=== PATIENT | female | born 1960 | race Caucasian/White ===

== ENCOUNTER 2017-06-24 14:07 | Day surgery (SDC) | payer OTHER ==
[~2017-06-24 14:07] MED LIST: Cipro500 MG PO; ERGO400 PO; Hydrocodone-Ap1 EA23 PO; LEVFLO500 PO; PREG75 PO; PROCODE120 PO; Percocet 5-3251 EACH PO; TRAM50 PO; VENL37.5 PO
== END 2017-06-24 22:55 | disposition home or self-care (01) ==
LOC: RAD 14:07
PROC: BP39YZZ Magnetic Resonance Imaging (MRI) of Left Shoulder using Other Contrast (ICD-10-PCS; principal; 2017-06-24)
DX: M75.122 Complete rotator cuff tear or rupture of left shoulder, not specified as traumatic (principal)
CPT/HCPCS: 23350; 73201; 77002; Q9967

== ENCOUNTER 2017-07-01 11:42 | Day surgery (SDC) | payer OTHER ==
[~2017-07-01] VITALS: Ht 157.5 cm; Wt 98.0 kg
[2017-07-01] MEDS ORDERED: MS CONTIN (13:48)
[2017-07-01] MEDS ORDERED: CALCA400CH PO (13:49)
== END 2017-07-01 17:55 | disposition home or self-care (01) ==
LOC: ORSCSDS 11:42
DX: M75.122 Complete rotator cuff tear or rupture of left shoulder, not specified as traumatic (principal); M75.42 Impingement syndrome of left shoulder; I10 Essential (primary) hypertension; G47.33 Obstructive sleep apnea (adult) (pediatric); E66.01 Morbid (severe) obesity due to excess calories; Z68.41 Body mass index [BMI] 40.0-44.9, adult; Z79.899 Other long term (current) drug therapy
CPT/HCPCS: C1713; J0690; J1100; J1885; J2250; J2405; J3010; J7120

== ENCOUNTER 2018-12-09 08:48 | Day surgery (SDC) | payer OTHER ==
[~2018-12-09 08:48] MED LIST changes: +CALCA400CH PO; +MS CONTIN
--- NOTE | 2018-12-09 10:18 | NUR ---
REPORT RECEIVED FROM NALLELY FOR CERVICAL MYLEOGRAM PATIENT. STATES PATIENT NOT CURRENTLY REPORTING HEADACHE, BUT THAT SHE MAY LIKELY EXPERIENCE IT. PATIENT STATES SHE HAS HAD A NUMBNESS AND SOME DISCOMFORT IN HER UPPER BACK OF HER BILATERAL LEGS THAT IS TRANSIENT IN NATURE FOR HER AT BASELINE. SHE STATES SHE HASN'T HAD IT IN A WHILE AND IT MAY BE DUE TO THE WAY THAT SHE WAS LYING. PATIENT REPOSITIONED WITH ADEQUATE RELIEF. PATIENT WITH GOOD AND EQUAL STRENGTH BILATERALLY IN LOWER LEGS. DENIES HEADACHE AT THIS TIME, WILL MONITOR. PATIENT REQUESTS ICE CHIPS. HOB AT 30 DEGREES AT ADMIT TO STEP. BANDAID TO BACK OBSERVED TO BE CLEAN, DRY AND INTACT. PATIENT NOTIFIED HER RECOVERY WILL BE UNTIL APPROXIMATELY 1200. VISITOR AT BEDSIDE NOW.
--- NOTE | 2018-12-09 11:58 | NUR ---
PATIENT UP FOR WALK, NO WEAKNESS NOTED, SOME STIFFNESS IN L LEG THAT PATIENT STATES IS LIKELY FROM LYING IN THE SAME POSITION FOR TOO LONG. D/C INSTRUCTIONS GIVEN WITH STATED UNDERSTANDING, PATIENT PLANNING ON GOING TO GET A COFFEE WITH HER VISTOR AT BEDSIDE AFTER LEAVING THE DEPARTMENT. DISCHARGED HOME AMBULATORY WITHOUT DISTRESS OR DIFFICULTIES.
[2019-04-03] MEDS ORDERED: PANT40 (10:51)
[2019-04-03] MEDS ORDERED: Estrace Vagin42.5 GM (10:52)
[2019-04-03] MEDS ORDERED: VOLTAREN100 GM (10:52)
== END 2018-12-09 23:01 | disposition home or self-care (01) ==
LOC: RAD 08:48
DX: M50.11 Cervical disc disorder with radiculopathy, high cervical region (principal); M47.23 Other spondylosis with radiculopathy, cervicothoracic region; M48.02 Spinal stenosis, cervical region; M46.92 Unspecified inflammatory spondylopathy, cervical region
CPT/HCPCS: 62302; 72126; Q9967

== ENCOUNTER 2018-12-22 09:54 | Day surgery (SDC) | payer OTHER ==
[~2018-12-22] VITALS: Ht 157.5 cm; Wt 98.2 kg
--- NOTE | 2018-12-22 11:42 | NUR ---
12/22/18 1142 Marianne Guzman PT. VERBALIZES LIKE SOMETHING IS STUCK IN HER ESOPHAGUS. PT. ATE AT 2300 LAST NIGHT & THIS IS WHY SHE IS HERE. IS AWARE.
--- NOTE | 2018-12-22 12:44 | NUR ---
12/22/18 1244 Marianne Guzman PT. VERBALIZES HAVING A BUMP ON HER LIP POST PROCEDURE. NO BLEEDING OBSERVED. INSTRUCTED PT. THAT SOMETIMES THE BITE BLOCK CAN MOVE IN THE MOUTH & CAUSE THIS.
[2019-04-03] MEDS ORDERED: PANT40 (10:51)
[2019-04-03] MEDS ORDERED: Estrace Vagin42.5 GM (10:52)
[2019-04-03] MEDS ORDERED: VOLTAREN100 GM (10:52)
== END 2018-12-22 12:40 | disposition home or self-care (01) ==
LOC: ORSCSDS 09:54
DX: R13.10 Dysphagia, unspecified (principal); K20.0 Eosinophilic esophagitis; K44.9 Diaphragmatic hernia without obstruction or gangrene; R11.2 Nausea with vomiting, unspecified; K21.9 Gastro-esophageal reflux disease without esophagitis; I10 Essential (primary) hypertension; G47.33 Obstructive sleep apnea (adult) (pediatric); M79.7 Fibromyalgia; Z79.899 Other long term (current) drug therapy
CPT/HCPCS: 88305; 88342; J2704; J7120

== ENCOUNTER → 2019-12-04 | Outpatient (CLI) | payer OTHER ==
[~2019-12-04] MED LIST changes: +Estrace Vagin42.5 GM; +PANT40; +VOLTAREN100 GM
[2019-12-04 12:41] LABS: Source, Urine Clean Catch
[2019-12-04 15:35] LABS: Bilirubin, Urine Neg (Neg); Blood, Urine 1+ (Neg); Glucose Qualitative, Urine Neg (Neg); Ketones, Urine Neg (Neg); Leukocyte Esterase, Urine Neg (Neg); Nitrite, Urine Neg (Neg); Protein, Urine Neg (Neg); Specific Gravity, Urine 1.025 (1.003-1.022); Urobilinogen, Urine NORM (Normal)
[2019-12-04 15:47] LABS: Appearance, Urine Cloudy (Clear); Color, Urine Yellow (P-Yellow)
[2019-12-04 16:08] LABS: Amorphous Heavy (0-Heavy); Bacteria Not Seen /hpf; Red Blood Cells, Urine Not Seen /hpf (0-2); Squamous Epithelial Cells Not Seen /hpf (Few); White Blood Cells, Urine Not Seen /hpf (0-5)
[2019-12-07 15:11] LABS: HPV 16 Negative (Negative); HPV 18 Negative (Negative); HPV OTHER HR TYPES Negative (Negative)
== END | disposition home or self-care (01) ==
LOC: LAB 12:40 → LAB SHORT 12:40
PROVIDERS: Obstetrics & Gynecology
DX: Z01.419 Encounter for gynecological examination (general) (routine) without abnormal findings (principal); R30.9 Painful micturition, unspecified
CPT/HCPCS: 81001

== ENCOUNTER 2020-04-19 13:56 | Observation (INO) | payer OTHER ==
[~2020-04-19] VITALS: Ht 157.5 cm; Wt 97.9 kg
[~2020-04-19 13:56] MED LIST changes: -ERGO400 PO; -Hydrocodone-Ap1 EA23 PO; -PREG75 PO
[2020-04-19 14:42] LABS: BASOPHILS ABSOLUTE AUTO 0.05 K/mm3 (0.00-0.23); BASOPHILS PERCENT AUTO 1 % (0-2); EOSINOPHILS ABSOLUTE AUTO 0.21 K/mm3 (0.00-0.68); EOSINOPHILS PERCENT AUTO 3 % (0-6); Hematocrit 42.2 % (33.0-51.0); Hemoglobin 13.5 g/dL (11.5-16.0); IMMATURE GRAN ABSOLUTE AUTO 0.03 K/mm3 (0.00-0.10); IMMATURE GRAN PERCENT AUTO 0 % (0-1); LYMPHOCYTES ABSOLUTE AUTO 2.15 K/mm3 (0.84-5.20); LYMPHOCYTES PERCENT AUTO 29 % (21-46); MONOCYTES ABSOLUTE AUTO 0.53 K/mm3 (0.16-1.47); MONOCYTES PERCENT AUTO 7 % (4-13); Mean Corpuscular HGB 28.3 pg (26.0-34.0); Mean Corpuscular Volume 89 fL (80-100); Mean Platelet Volume 9.3 fL (9.1-12.4); NEUTROPHILS ABSOLUTE AUTO 4.54 K/mm3 (1.96-9.15); NEUTROPHILS PERCENT AUTO 60 % (41-73); Platelet Count 199 K/mm3 (150-400); RDW Coefficient Variation 13.5 % (11.7-14.2); RDW Standard Deviation 43.9 fL (35.1-46.3); Red Blood Cell Count 4.77 M/mm3 (3.80-5.20); White Blood Cell Count 7.51 K/mm3 (4.00-11.30)
[2020-04-19 14:55] LABS: Alanine Aminotransfer (ALT/SGP 35 U/L (12-78); Albumin, Blood 4.1 g/dL (3.4-5.0); Albumin/Globulin Ratio 1.1 (0.8-1.8); Alk Phos 69 U/L (50-136); Anion Gap 8 mmol/L (6-16); Aspartate Aminotrans (AST/SGOT 16 U/L (12-37); Bilirubin, Total 0.3 mg/dL (0.1-1.0); Blood Urea Nitrogen 10 mg/dL (8-24); Bun/Creatinine Ratio 15.2 (12.0-20.0); CO2, Blood 29 mmol/L (21-32); Calcium, Blood 9.1 mg/dL (8.5-10.1); Chloride, Blood 104 mmol/L (98-108); Creatinine, Blood 0.66 mg/dL (0.40-1.00); Globulin, Blood 3.6 g/dL (2.2-4.0); Glomerular Filtration Rate >60 (60-); Glucose, Blood 112 mg/dL (70-99); Potassium, Blood 3.3 mmol/L (3.5-5.5); Sodium, Blood 141 mmol/L (136-145); Total Protein, Blood 7.7 g/dL (6.4-8.2)
[2020-04-19] MEDS ORDERED: Vitamin D2000 UNIT PO (15:13)
[2020-04-19] MEDS ORDERED: CYAN500 PO (15:14)
[2020-04-19] MEDS ORDERED: Hydrocodone-Ap1 EA23 PO (15:14)
[2020-04-19] MEDS ORDERED: PREG75 PO (15:14)
[2020-04-19] MEDS ORDERED: RISP.25 PO (15:18)
--- NOTE | 2020-04-19 19:20 | NUR ---
SHIFT SUMMARY LEE ARRIVED FROM ER AROUND 171. INDEP FROM STRETCHER TO BED. WATER PROVIDED PER ORDER, BLOOD SUGAR 80. KEPT NPO. AT BEDSIDE.
--- NOTE | 2020-04-20 05:08 | NUR ---
SHIFT SUMMARY ASSUMED CARE OF PT AT 1900. PT IS A/OX4. HEART SOUNDS REGULAR, LUNG SOUNDS CLEAR. PT INDEPENDENT TO BATHROOM. PT GLUCOSE STAYED ABOVE 70 T/O THE NIGHT. NO ACUTE EVENTS DURING THE NIGHT. PT SLEPT T/O THE NIGHT. CALL LIGHT IN REACH, BED IN LOWEST POSTION.
[2020-04-20 05:35] LABS: Anion Gap 5 mmol/L (6-16); Blood Urea Nitrogen 11 mg/dL (8-24); Bun/Creatinine Ratio 17.4 (12.0-20.0); CO2, Blood 31 mmol/L (21-32); Calcium, Blood 8.8 mg/dL (8.5-10.1); Chloride, Blood 108 mmol/L (98-108); Creatinine, Blood 0.63 mg/dL (0.40-1.00); Glomerular Filtration Rate >60 (60-); Glucose, Blood 89 mg/dL (70-99); Potassium, Blood 3.5 mmol/L (3.5-5.5); Sodium, Blood 144 mmol/L (136-145)
[2020-04-20] MEDS ORDERED: METF500 PO (16:21)
--- NOTE | 2020-04-20 17:00 | NUR ---
DISCHARGE INSTRUCTIONS COMPLETED AND DISCUSSED WITH PT EXPRESSING UNDERSTANDING. SCRIPT FAXED TO [facility]. TO [facility] VIA W/C.
== END 2020-04-20 17:00 | disposition home or self-care (01) ==
LOC: ER 13:56 → MEDS 13:57
PROVIDERS: Emergency Medicine; ADMIT Internal Medicine Endocrinology, Diabetes & Metabolism
DX: E16.1 Other hypoglycemia (principal); R73.03 Prediabetes; E87.6 Hypokalemia; G89.4 Chronic pain syndrome; M47.892 Other spondylosis, cervical region; M47.894 Other spondylosis, thoracic region; M47.896 Other spondylosis, lumbar region; M16.0 Bilateral primary osteoarthritis of hip; F41.8 Other specified anxiety disorders; M79.7 Fibromyalgia; G47.33 Obstructive sleep apnea (adult) (pediatric); J45.990 Exercise induced bronchospasm; E66.9 Obesity, unspecified; Z68.39 Body mass index [BMI] 39.0-39.9, adult; Z88.6 Allergy status to analgesic agent; Z79.899 Other long term (current) drug therapy
CPT/HCPCS: 36415; 80048; 80053; 82947; 84443; 85025; 96372; 99285; A9270-GY; G0378; J1650

== ENCOUNTER → 2021-10-31 | Outpatient (CLI) | payer OTHER ==
[~2021-10-31] MED LIST changes: +CYAN500 PO; +Hydrocodone-Ap1 EA23 PO; +METF500 PO; +PREG75 PO; +RISP.25 PO; +Vitamin D2000 UNIT PO
[2021-11-01 10:52] LABS: Candida species (DNA Probe) Negative (NEGATIVE); G. vaginalis (DNA Probe) Positive (NEGATIVE); T. vaginalis (DNA Probe) Negative (NEGATIVE)
== END | disposition home or self-care (01) ==
LOC: LAB SHORT 16:51 → LAB 16:51
PROVIDERS: Obstetrics & Gynecology
DX: N76.0 Acute vaginitis (principal)
CPT/HCPCS: 87480; 87510; 87660

== ENCOUNTER 2022-04-27 20:49 | Emergency (ER) | payer OTHER ==
[~2022-04-27] VITALS: Ht 157.5 cm; Wt 83.9 kg
[~2022-04-27 20:49] MED LIST changes: +ACET500 PO; +HYDSUL200 PO; +IBUP400 PO; +PARO30 PO; +ROXICODONE5 MG PO
== END 2022-04-28 03:00 | disposition home or self-care (01) ==
LOC: ER 20:49
DX: M79.662 Pain in left lower leg (principal); G47.33 Obstructive sleep apnea (adult) (pediatric); K21.9 Gastro-esophageal reflux disease without esophagitis; Z88.8 Allergy status to other drugs, medicaments and biological substances; Z79.899 Other long term (current) drug therapy
CPT/HCPCS: 93971